=== PATIENT | male | born 1950 | race Two or more races ===

== ENCOUNTER 2024-05-07 10:20 | Outpatient (RCR) | payer OTHER, SELFPAY | END 2024-05-10 23:59 | disposition home or self-care (01) | LOC: SCTC 10:20 | PROVIDERS: PCP Family Medicine; Referring Provider Family Medicine; Visit Provider Radiology Therapeutic Radiology | DX: Z51.0 Encounter for antineoplastic radiation therapy (principal); C61 Malignant neoplasm of prostate | CPT/HCPCS: 77300; 77301; 77336; 77338; 77385 ==

== ENCOUNTER 2024-06-03 10:11 | Outpatient (RCR) | payer OTHER, SELFPAY ==
--- NOTE | 2024-05-12 12:35 | CTCTRTNOTE_ITS ---
[facility] [address] [place], [place] [address] Weekly Management Date: 05/12/2024 ?? Name: PRO ELLER : 1950 A. Patient is currently at 3000 cGy. B. Patient is tolerating treatment well. Minor pelvic symptoms. C. Resume radiation therapy. Electronically signed by: Pavan Shay M.D. 05/12/2024 12:32 PM
--- NOTE | 2024-05-19 12:21 | CTCTRTNOTE_ITS ---
[facility] [address] [place], [place] [address] Weekly Management Date: 05/19/2024 ?? Name: PRO ELLER : 1950 A. Patient is currently at 4250 cGy. B. Patient is tolerating treatment well. C. Resume radiation therapy. Electronically signed by: Pavan Shay M.D. 05/19/2024 12:19 PM
== END 2024-06-10 23:59 | disposition home or self-care (01) ==
LOC: SCTC 10:11
PROVIDERS: PCP Family Medicine; Referring Provider Family Medicine; Visit Provider Radiology Therapeutic Radiology
DX: Z51.0 Encounter for antineoplastic radiation therapy (principal); C61 Malignant neoplasm of prostate
CPT/HCPCS: 77336; 77385

== ENCOUNTER 2024-06-18 10:23 | Outpatient (RCR) | payer OTHER, SELFPAY ==
--- NOTE | 2024-06-18 10:52 | CTCTSUMM_ITS ---
[facility] [address] [place], [place] [address] Treatment Summary Date: 06/18/2024 MR#: [id number] Name: PRO ELLER : 1950 Dx: C61 Referring Physician: DIPAK Hicks (A) Diagnosis: [ICD10] C61 Malignant neoplasm of prostate (B) Aim of Treatment: ?? (C) Concomitant Chemotherapy: No (D) Radiation Dates: 04/22/2024 through 06/03/2024 Treatment Prescription prostate VMAT 10MV 7,000 cGy 28 250 cGy Approved (E) All david were treated using customized MLC Blocks (F) Finding at Discharge: Patient tolerated treatment well and is pelvis is not returning to normal. He was experiencing fatigue which I reassured him about. [facility]. (G) Discharge Instructions and F/U Appt was given: The patient was also advised to continue follow-up with DIPAK Hicks and primary care physician: Electronically signed by: Pavan Shay MD, ALEXIR 06/18/2024 10:50 AM
== END 2024-07-11 23:59 | disposition home or self-care (01) ==
LOC: SCTC 10:23
PROVIDERS: PCP Family Medicine; Referring Provider Family Medicine; Visit Provider Radiology Therapeutic Radiology
DX: C61 Malignant neoplasm of prostate (principal); Z92.3 Personal history of irradiation
CPT/HCPCS: 99212; G0463